=== PATIENT | male | born 2000 | race Caucasian/White ===

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

== ENCOUNTER 2021-01-25 11:25 | Emergency (ER) | payer MEDICAID ==
[~2021-01-25] VITALS: Ht 165.1 cm; Wt 58.5 kg
[2021-01-25 12:32] VITALS: BP 117/77; PULSE 118; TEMP 99.1
[2021-01-25] MEDS ORDERED: NIGHT TIME COL355 M1 PO (12:38)
[2021-01-26] MEDS ORDERED: ZITHROMAX 250M250 MG PO (07:04)
[2021-01-26] MEDS ORDERED: TESSALON P100 MG/CAP PO (07:04)
[2021-01-26] MEDS ORDERED: AMOXICILLIN 50500 MG PO (07:04)
== END 2021-01-25 13:30 | disposition left against medical advice (07) ==
LOC: COL.ER 11:25
DX: R05.9 Cough, unspecified (principal); Z20.822 Contact with and (suspected) exposure to COVID-19

== ENCOUNTER 2021-01-26 06:51 | Emergency (ER) | payer MEDICAID ==
[~2021-01-26] VITALS: Ht 165.1 cm; Wt 58.2 kg
[~2021-01-26 06:51] MED LIST: NIGHT TIME COL355 M1 PO
[2021-01-26] MEDS ORDERED: ZITHROMAX 250M250 MG PO (07:04)
[2021-01-26] MEDS ORDERED: AMOXICILLIN 50500 MG PO (07:04)
[2021-01-26] MEDS ORDERED: TESSALON P100 MG/CAP PO (07:04)
[2021-01-26 07:17] VITALS: BP 126/87
[2021-01-26 07:53] VITALS: PULSE 90; TEMP 98.2
== END 2021-01-26 08:12 | disposition home or self-care (01) ==
LOC: COL.ER 06:51
DX: J18.9 Pneumonia, unspecified organism (principal)